=== PATIENT | male | born 1995 | race Caucasian/White ===

== ENCOUNTER 2022-08-30 05:30 | Emergency (ER) | payer OTHER ==
[~2022-08-30] VITALS: Ht 172.7 cm; Wt 104.3 kg
[2022-08-30 05:35] VITALS: BP 168/85
--- NOTE | 2022-08-30 05:35 | NUR ---
to bed ambulatory
--- NOTE | 2022-08-30 05:43 | NUR ---
mehnaz yao at bedside
[2022-08-30] MEDS ORDERED: DEXAMETHASONE 10 MG/ML VIAL IM ONE (05:45)
[2022-08-30] MEDS ORDERED: CLINDAMYCIN 150 MG CAP PO ONE (05:45)
[2022-08-30] MEDS ORDERED: CLIN300C2 PO (05:49)
--- NOTE | 2022-08-30 05:50 | NUR ---
27YR OLD MALE BIB SELF C/O THROAT PAIN X2 WEEKS. PT IS A&OX4 DENIES SOB CP OR FEVER. PT DENIES COUGH OR CONGESTION . RESP EVEN AND UNLABORED. SKIN WARM AND DRY. PT STATES THROAT HAS BEEN HURTING [id number]. BURNING PAIN 5/. NKDA NO MED HX
--- NOTE | 2022-08-30 05:50 | NUR ---
Patient discharged with v/s stable. Written and verbal after care instructions given and explained. Patient alert, oriented and verbalized understanding of instructions. Ambulatory with steady gait. All questions addressed prior to discharge. ID band removed. Patient advised to follow up with PMD. Rx of CLEOCIN HCL given.
--- NOTE | 2022-08-30 05:51 | NUR ---
STREP SWABS COLLECTED AND SENT TO LAB
--- NOTE | 2022-08-30 06:11 | NUR ---
The patient's care was reviewed and supervised by Alexa Anderson RN, RN.
== END 2022-08-30 06:05 | disposition home or self-care (01) ==
LOC: MED 05:30
DX: J03.90 Acute tonsillitis, unspecified (principal); J02.9 Acute pharyngitis, unspecified
CPT/HCPCS: 87081; 96372; 99283; J1100